=== PATIENT | female | born 1990 | race Caucasian/White ===

== ENCOUNTER 2022-05-06 01:13 | Emergency (ER) | payer SELFPAY ==
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
[2022-05-06 01:17] VITALS: BP 173/100; PULSE 109; RESP 18; TEMP 36.7; O2SAT 97; BMI 53.5
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
[2022-05-06 01:30] VITALS: BP 138/85; PULSE 110; RESP 19; O2SAT 98
[2022-05-06 02:00] VITALS: BP 159/93; PULSE 105; RESP 17; O2SAT 98
[2022-05-06] MEDS: HYDROmorphone 1 mg/mL INJ 1 mL IVP (02:12)
[2022-05-06 02:30] VITALS: BP 164/88; PULSE 111; RESP 20; O2SAT 98
== END 2022-05-06 03:00 | disposition home or self-care (01) ==
PROVIDERS: Emergency Provider Emergency Medicine
DX: Z04.1 Encounter for examination and observation following transport accident (principal); V89.2XXA Person injured in unspecified motor-vehicle accident, traffic, initial encounter
CPT/HCPCS: 70450; 71250; 72125; 73552; 74176; 96374; 99284; J1170